=== PATIENT | male | born 1995 | race African-American/Black ===

== ENCOUNTER 2024-02-29 22:46 | Emergency (ER) | payer OTHER ==
[~2024-02-29] VITALS: Ht 182.9 cm; Wt 102.1 kg
[~2024-02-29 22:46] MED LIST: CEPH500 PO
== END 2024-03-01 00:49 | disposition home or self-care (01) ==
LOC: ER 22:46
DX: S62.002A Unspecified fracture of navicular [scaphoid] bone of left wrist, initial encounter for closed fracture (principal); V89.9XXA Person injured in unspecified vehicle accident, initial encounter
CPT/HCPCS: 29125; 73110; 99283-25